=== PATIENT | female | born 2000 | race Caucasian/White ===

== ENCOUNTER 2018-12-19 19:10 | Emergency (ER) | payer OTHER ==
[2018-12-19] MEDS ORDERED: KETOROLAC TROMETHAMINE 60 MG/2 ML SDV IM ONE (23:31)
[2018-12-19] MEDS ORDERED: CYCLOBENZAPRINE HCL 10 MG TABLET PO ONE (23:32)
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
[2018-12-19 23:56] VITALS: BP 121/73
== END 2018-12-20 00:08 | disposition home or self-care (01) ==
LOC: ER 19:10
DX: S16.1XXA Strain of muscle, fascia and tendon at neck level, initial encounter (principal); S20.219A Contusion of unspecified front wall of thorax, initial encounter; M62.830 Muscle spasm of back; R10.819 Abdominal tenderness, unspecified site; M54.2 Cervicalgia; R51 Headache; R07.9 Chest pain, unspecified; V43.52XA Car driver injured in collision with other type car in traffic accident, initial encounter; Z91.030 Bee allergy status
CPT/HCPCS: 99283; 96372; J1885